=== PATIENT | male | born 1955 | race Caucasian/White ===

== ENCOUNTER 2016-09-18 00:14 | Emergency (ER) | payer OTHER ==
[~2016-09-18] VITALS: Ht 172.7 cm; Wt 79.4 kg
--- NOTE | ~2016-09-18 | EKG ---
PATIENT: MEREDITH PIERRE UNIT #: [id number] Ventricular Rate: 69 BPM Atrial Rate: 69 BPM P-R Interval: 142 ms QRS Duration: 86 ms Q-T Interval: 406 ms QTC Calculation(Bezet): 435 ms P [place]: 39 degrees Calculated R [place]: 71 degrees Calculated T [place]: 39 degrees Diagnosis Line: Normal sinus rhythm Diagnosis Line: Normal ECG Diagnosis Line: No previous ECGs available Diagnosis Line: Confirmed by PADMAJA ROSA MD ([id number]) on Diagnosis Line: 09/19/2016 7:18:39 AM INTERPRETING MD: MOE DONALDSON
--- NOTE | ~2016-09-18 | CR72 ---
[facility] A Service of [facility] RADIOLOGY TEXT RESULTS PATIENT: MEREDITH PIERRE LOCATION: SED : 57 UNIT #: [id number] AGE: [address]: Kyle Armenta MD SEX: M ORDER DR: [id number] [place] [id number] MR#: [id number] Acc #: [id number] NAME: MEREDITH PIERRE : 1955 SEX: M STUDY DATE/TIME: 09/18/2016 0:42 UNIT: SED ROOM: STUDY DESCRIPTION: CR Chest Single View Portable Attending Physician: Kyle Armenta M.D. Ordering Physician: Kyle Armenta M.D. MEDICAL IMAGING REPORT This report is preliminary unless electronic signature is present. EXAM Chest x-ray, 09/18/2016. HISTORY 61-year-old male in the ED complaining of chest pain which has been present for over a month. He notes a recent history of heart attack. TECHNIQUE AP portable upright chest x-ray. FINDINGS The heart is mildly enlarged. Pulmonary vascularity is normal. Shallow lung expansion with linear atelectasis or scarring in the left base. The lungs are otherwise clear. No visible pulmonary edema or pleural effusion. IMPRESSION 1. Mild cardiomegaly. Pulmonary vascularity is normal. 2. Shallow lung expansion with plate-like atelectasis or scarring in the left lung base. Dictated by... Lalito Morris M.D. THIS IS AN ELECTRONICALLY VERIFIED REPORT Lalito Morris M.D. at 09/18/2016 10:00 PM RGW/tu TD: 09/18/2016 12:24 JOB #: [id number] [facility] A Service [facility] RADIOLOGY TEXT RESULTS PATIENT: MEREDITH PIERRE LOCATION: SED : 57 UNIT #: [id number] AGE: [address]: Kyle Armenta MD SEX: M ORDER DR: MEDICAL IMAGING REPORT Page 1 of 1
[~2016-09-18 00:14] MED LIST: BACTRIM DS TABL1 TA1 PO; FLEXERIL10 MG PO; KEFLEX PO; MEDROL DOSEPAK4 MG PO; NO MEDICATIONS; PERCOCET 5-3251 TAB PO; ROBAXIN500 MG PO; VOLTAREN75 MG PO
[2016-09-18] MEDS ORDERED: ST. JOSEPH ASPI81 M3 PO (00:27)
[2016-09-18] MEDS ORDERED: ALDACTONE25 MG PO (00:28)
[2016-09-18] MEDS ORDERED: LIPITOR40 MG PO (00:28)
[2016-09-18] MEDS ORDERED: AMIODARONE HCL200 MG PO (00:29)
[2016-09-18] MEDS ORDERED: BRILINTA90 MG PO (00:29)
[2016-09-18] MEDS ORDERED: FUROSEMIDE40 MG PO (00:30)
[2016-09-18] MEDS ORDERED: FAMOTIDINE20 M1 PO (00:30)
[2016-09-18 01:28] LABS: BASOPHIL# 0.2 X10e3 (0-0.3); BASOPHIL% 1.5 % (0-2.5); EOSINOPHIL# 0.5 X10e3 (0-0.7); EOSINOPHIL% 4.6 % (0.0-7.0); HEMATOCRIT 37.9 % (38.0-50.0); HEMOGLOBIN 13.1 gm/dL (13.0-16.0); LYMPHOCYTE# 2.2 X10e3 (1.0-3.5); LYMPHOCYTE% 21.5 % (17.0-45.0); MEAN CORPUSCULAR HGB CONC 34.5 g/dL (30-36); MEAN PLATELET VOLUME 9.6 FL (6.5-11.5); MONOCYTE# 0.9 X10e3 (0-1.0); MONOCYTE% 8.7 % (3.0-12.0); NEUTROPHIL# 6.6 X10e3 (1.5-7.1); NEUTROPHIL% 63.7 % (40-75); PLATELET COUNT 245 X10e3 (140-420); RED BLOOD COUNT 4.21 X10e (3.90-5.60); RED CELL DISTRIBUTION WIDTH 14.3 % (11.0-15.5); WHITE BLOOD COUNT 10.4 X10e3 (4.0-10.5)
[2016-09-18 01:29] LABS: DIFF IND NO
[2016-09-18 01:36] LABS: INR 1.1
[2016-09-18 01:44] LABS: ALBUMIN SERUM 4.1 g/dL (3.5-5.0); ALKALINE PHOSPHATASE 118 U/L (32-92); ALT (SGPT) 25 U/L (10-40); AST (SGOT) 19 U/L (10-42); BILIRUBIN, DIRECT <0.1 mg/dL (0.0-0.2); BILIRUBIN,INDIRECT 0.4 mg/dL (0.0-0.9); BILIRUBIN,TOTAL 0.5 mg/dL (0.2-2.0); BLOOD UREA NITROGEN 23 mg/dL (9-23); BUN/CREATININE RATIO 15.33; CALCIUM SERUM 8.9 mg/dL (8.4-10.2); CARBON DIOXIDE 25 mmol/L (22-31); CHLORIDE 104 mmol/L (100-111); CREATININE SERUM 1.5 mg/dL (0.6-1.4); GLOM FILT RATE Estimated 49.9 mL/min (>60); GLUCOSE FASTING 108 mg/dL (70-110); PROTEIN TOTAL SERUM 6.9 g/dL (6.0-8.3); SODIUM 134 mmol/L (135-145)
[2016-09-18 01:48] LABS: POC - CKMB 4.6 ng/mL (0.0-7.9)
[2016-09-18 01:49] LABS: POC - TROPONIN 0.34 ng/mL (<=0.05)
[2016-09-18 02:52] LABS: URINE SOURCE CLEAN CATCH
[2016-09-18 02:54] LABS: URINE APPEARANCE CLEAR; URINE BILIRUBIN NEG (NEG); URINE BLOOD NEG (NEG); URINE COLOR YELLOW; URINE GLUCOSE NEG (NORM); URINE KETONE NEG (NEG); URINE LEUKOCYTE ESTERASE NEG (NEG); URINE NITRATE NEG (NEG); URINE PROTEIN NEG (NEG); URINE SPECIFIC GRAVITY <=1.005 (1.003-1.035)
[2016-09-18 02:56] LABS: MICRO INDICATED? NO
[2016-09-18 05:10] LABS: POC - CKMB 3.1 ng/mL (0.0-7.9); POC - TROPONIN 0.25 ng/mL (<=0.05)
== END 2016-09-18 05:29 | disposition home or self-care (01) ==
LOC: SED 00:14
PROVIDERS: Emergency Medicine
DX: R07.9 Chest pain, unspecified (principal); Z87.891 Personal history of nicotine dependence; Z88.0 Allergy status to penicillin; Z88.5 Allergy status to narcotic agent; Z79.899 Other long term (current) drug therapy
CPT/HCPCS: 36415; 71010; 80048; 80076; 81003; 82553; 84484; 85025; 85610; 85730; 93005; 99285